=== PATIENT | male | born 1970 | race African-American/Black ===

== ENCOUNTER 2020-01-30 05:55 | Emergency (ER) | payer BC ==
[~2020-01-30] VITALS: Ht 172.7 cm; Wt 145.2 kg
[2020-01-30] MEDS ORDERED: BACTRIM DS TAB1 EACH PO (06:59)
[2020-01-30 07:22] VITALS: BP 163/106
== END 2020-01-30 07:28 | disposition home or self-care (01) ==
LOC: ER 05:55
DX: L02.211 Cutaneous abscess of abdominal wall (principal); Z88.0 Allergy status to penicillin